=== PATIENT | female | born 2000 | race Asian ===

== ENCOUNTER 2020-03-08 16:07 | Emergency (ER) | payer BC ==
[2020-03-08 17:20] VITALS: RESP 18
[2020-03-08] MEDS ORDERED: LIDOCAINE 1% INJ 10MG/ML (20 ML MDV) SQ ONE (17:49)
--- NOTE | 2020-03-08 17:51 | ED ---
Upper Extremity HPI - General Chief Complaint: Extremity Injury, Upper Stated Complaint: finger injury Time Seen by Provider: 03/08/20 17:46 Source: patient Mode of arrival: ambulatory Limitations: no limitations - History of Present Illness Initial Comments: Patient is a 19-year-old female presenting to the emergency department with a chief complaint of fifth digit pain. Patient states she slammed her car trunk lid on her left fifth digit. Patient reports now there is bleeding and a laceration along the nail. Patient reports border nail is coming off. Patient reports there is significant amount of pain and is causing her to have increased anxiety. Patient states tetanus is up-to-date. Denies any numbness or tingling. States no blood thinners. - Related Data Allergies Allergy/AdvReac Type Severity Reaction Status Date / Time No Known Allergies Allergy Verified 03/08/20 17:20 Review of Systems ROS Statement: Those systems with pertinent positive or pertinent negative responses have been documented in the HPI. ROS Other: All systems not noted in ROS Statement are negative. Past Medical History Past Medical History: No Reported History History of Any Multi-Drug Resistant Organisms: None Reported Past Surgical History: No Surgical Hx Reported Past Psychological History: No Psychological Hx Reported Smoking Status: Never smoker Past Alcohol Use History: None Reported Past Drug Use History: None Reported General Exam Limitations: no limitations General appearance: alert, in no apparent distress, anxious Head exam: Present: atraumatic, normocephalic, normal inspection Eye exam: Present: normal appearance, PERRL, EOMI Pupils: Present: normal accommodation ENT exam: Present: normal exam, normal oropharynx, mucous membranes moist, TM's normal bilaterally, normal external ear exam Neck exam: Present: normal inspection, full ROM. Absent: tenderness Respiratory exam: Present: normal lung sounds bilaterally. Absent: respiratory distress, wheezes, rales Cardiovascular Exam: Present: regular rate, normal rhythm, normal heart sounds Extremities exam: Present: full ROM (She is moving her left fifth digit without issues.), tenderness (Tenderness at the site of injury.), normal capillary refill, other (+2 ulnar and radial pulses bilaterally.). Absent: normal inspection (Fracture on the distal end of the left fifth digit. There is a laceration partially through her nail) Back exam: Present: normal inspection, full ROM. Absent: tenderness Neurological exam: Present: alert, oriented X3 Psychiatric exam: Present: normal affect, depressed, anxious Skin exam: Present: warm, dry, intact, normal color Course Vital Signs 03/08/20 03/08/20 17:16 20:09 Temperature 98.1 F 98.2 F Pulse Rate 64 69 Respiratory 18 18 Rate Blood Pressure 128/73 121/75 O2 Sat by Pulse 100 99 Oximetry Procedures - Laceration Laceration #1 Consent Obtained: verbal consent Indication: laceration Site: hand (Tuft fracture left fifth digit.) Size (cm): 1 Description: irregular, clean Depth: simple, single layer Sedation/Analgesia: none Anesthetic Used: lidocaine 1% Anesthesia Technique: nerve block Amount (mls): 5 Pre-repair: irrigated extensively, deep structures intact Type of Sutures: nylon Size of Sutures: 4-0 Number of Sutures: 6 Technique: simple, interrupted Patient Tolerated Procedure: well, no complications - Nerve Block Consent Obtained: verbal consent Local Anesthetic Used: Lidocaine 1% Amount of anesthesia used: 5 Side: left Nerve Blocks: digital Procedure Successful: Yes Complications: none Patient Tolerated Procedure: well, no complications - Orthopedic Splinting/Casting Injury #1 Side: left Upper Extremity Immobilizer: finger (other) Medical Decision Making - Medical Decision Making Patient is a 19-year-old female presenting to the emergency department with chief complaint of left fifth digit pain. On physical examination, the patient has a laceration through the nail on the left fifth digit. X-ray reveals a tuft fracture. This is an open fracture. Patient was given Ancef. Laceration site was repaired with 6 sutures. I was able to tack the nail down and close the nailbed laceration. Patient started procedure well with a digital block. Laceration site was thoroughly irrigated. Patient was also given some anxiolytics because her anxiety was heightened. Finger splint applied. Patient was advised to follow-up with an benefits specialist recruiter. Strict return parameters were thoroughly discussed patient was up standing ago. Case discussed with physician. Disposition Clinical Impression: Open fracture of tuft of distal phalanx of finger, Finger injury Disposition: HOME SELF-CARE Condition: Stable Instructions (If sedation given, give patient instructions): Finger Laceration (ED) Additional Instructions: Follow-up with an benefits specialist recruiter. Return to emergency department if symptoms worsen. Is patient prescribed a controlled substance at d/c from ED?: No Referrals: None,Stated [Primary Care Provider] - 1-2 days Emily Spangler DO [Doctor of Osteopathic Medicine] - 1-2 days Time of Disposition: 19:17
--- NOTE | 2020-03-08 18:17 | XR ---
EXAMINATION TYPE: XR finger RT DATE OF EXAM: 03/08/2020 COMPARISON: NONE HISTORY: Crush injury TECHNIQUE: 3 views of the left little finger FINDINGS: There is comminuted fracture of the tuft of the distal phalanx of the little finger left wing nd. There is no dislocation. There is no sign of a foreign body. IMPRESSION: Comminuted tuft fracture.
[2020-03-08] MEDS ORDERED: LORazepam 2 MG/ML INJ IV STA (18:53)
[2020-03-08 20:10] VITALS: BP 121/75; PULSE 69; TEMP 98.2
== END 2020-03-08 20:10 | disposition home or self-care (01) ==
LOC: EC 16:07
DX: S62.637B Displaced fracture of distal phalanx of left little finger, initial encounter for open fracture (principal); W23.0XXA Caught, crushed, jammed, or pinched between moving objects, initial encounter
CPT/HCPCS: 73140; 99283; 96365; 96375; 12001; J2060; J0690; J2001